=== PATIENT | female | born 1970 | race African-American/Black ===

== ENCOUNTER 2016-09-23 20:14 | Emergency (ER) | payer SELFPAY ==
[~2016-09-23] VITALS: Ht 160 cm; Wt 50.0 kg
[2016-09-23] MEDS ORDERED: SODIUM CHLOR 0.9% 1000 ML INJ 1,000 ML IV SCH (20:44)
[2016-09-23] MEDS ORDERED: SODIUM CHLORIDE 0.9% FLUSH 5 ML FLUSH IVF PRN (20:45)
[2016-09-23] MEDS ORDERED: ONDANSETRON HCL 4 MG/2 ML VIAL IVP ONE (20:45)
[2016-09-23 20:48] VITALS: BP 125/77; PULSE 59; RESP 16; TEMP 98.3; O2SAT 95
--- NOTE | 2016-09-23 21:36 | PD ---
HPI Chief Complaint: GI Complaint Time Seen by Provider: 20:36 Travel History International Travel<30 days: No Contact w/Intl Traveler<30days: No Traveled to known affect area: No History of Present Illness HPI This is a 45-year-old female presents with nausea vomiting and diarrhea since 1800 this afternoon. Patient states that she had a bologna sandwich at approximately 1700 and then started with nausea which is nonbloody and nonbilious as well as diarrhea sometime after that. Patient also states she had a baked potato for lunch but had no problems with that. Denies any abdominal pain fevers or blood in the stool or blood in the emesis. PFSH Past Medical History Medical History: Denies Significant Hx Diminished Hearing: No Tetanus Vaccination: Unknown Influenza Vaccination: No ?: Not LMP: 09/02/16 : 4 Para: 2 : 2 Ovarian Cysts: Yes Past Surgical History Gynecologic Surgery: Yes (GRANULOSA TUMOR REMOVAL) Social History Alcohol Use: Yes (OCCASIONALLY) Tobacco Use: Yes (1 CIGARETTE A DAY) Substance Use: No Allergies-Medications (Allergen,Severity, Reaction): Coded Allergies: No Known Allergies (Unverified , 09/23/16) Reported Meds & Prescriptions Reported Meds & Active Scripts Active Flagyl (Metronidazole) 500 Mg Tab 500 Mg PO BID 7 Days Cipro (Ciprofloxacin HCl) 500 Mg Tab 500 Mg PO BID 7 Days Zofran Odt (Ondansetron Odt) 4 Mg Tab 4 Mg SL Q6HR PRN Review of Systems Except as stated in HPI: all other systems reviewed are Neg Physical Exam Narrative GENERAL: Well-developed well-nourished no apparent distress SKIN: Warm and dry. HEAD: Atraumatic. Normocephalic. EYES: Pupils equal and round. No scleral icterus. No injection or drainage. ENT: No nasal bleeding or discharge. Mucous membranes pink and moist. NECK: Trachea midline. No JVD. CARDIOVASCULAR: Regular rate and rhythm. No murmur appreciated. RESPIRATORY: No accessory muscle use. Clear to auscultation. Breath sounds equal bilaterally. GASTROINTESTINAL: Abdomen soft, non-tender, nondistended. Hepatic and splenic margins not palpable. MUSCULOSKELETAL: No obvious deformities. No clubbing. No cyanosis. No edema. NEUROLOGICAL: Awake and alert. No obvious cranial nerve deficits. Motor grossly within normal limits. Normal speech. PSYCHIATRIC: Appropriate mood and affect; insight and judgment normal. Data Data Last Documented VS Vital Signs Date Time Temp Pulse Resp B/P Pulse Ox O2 Delivery O2 Flow Rate FiO2 09/24/16 00:56 61 18 102/55 98 09/23/16 23:00 Room Air 09/23/16 20:48 98.3 Orders Complete Blood Count With Diff (09/23/16 20:44) Comprehensive Metabolic Panel (09/23/16 20:44) Lipase (09/23/16 20:44) Urinalysis - C+S If Indicated (09/23/16 20:44) Iv Access Insert/Monitor (09/23/16 20:44) Ecg Monitoring (09/23/16 20:44) Oximetry (09/23/16 20:44) Ondansetron Inj (Zofran Inj) (09/23/16 20:45) Sodium Chlor 0.9% 1000 Ml Inj (Ns 1000 M (09/23/16 20:44) Sodium Chloride 0.9% Flush (Ns Flush) (09/23/16 20:45) Ed Urine Pregnancytest Poc (09/23/16 20:44) Ct Abd/Pel W Iv Contrast(Rout) (09/23/16 ) Cath For Specimen (09/23/16 23:06) Urine Culture (09/23/16 22:55) Iohexol 350 Inj (Omnipaque 350 Inj) (09/23/16 23:57) Labs Laboratory Tests Test 09/23/16 09/23/16 21:10 22:55 White Blood Count 19.8 TH/MM3 Red Blood Count 4.69 MIL/MM3 Hemoglobin 13.3 GM/DL Hematocrit 39.7 % Mean Corpuscular Volume 84.6 FL Mean Corpuscular Hemoglobin 28.3 PG Mean Corpuscular Hemoglobin 33.5 % Concent Red Cell Distribution Width 13.3 % Platelet Count 287 TH/MM3 Mean Platelet Volume 10.0 FL Neutrophils (%) (Auto) 90.2 % Lymphocytes (%) (Auto) 4.1 % Monocytes (%) (Auto) 5.2 % Eosinophils (%) (Auto) 0.3 % Basophils (%) (Auto) 0.2 % Neutrophils # (Auto) 17.8 TH/MM3 Lymphocytes # (Auto) 0.8 TH/MM3 Monocytes # (Auto) 1.0 TH/MM3 Eosinophils # (Auto) 0.1 TH/MM3 Basophils # (Auto) 0.0 TH/MM3 CBC Comment DIFF FINAL Differential Comment Sodium Level 140 MEQ/L Potassium Level 3.4 MEQ/L Chloride Level 106 MEQ/L Carbon Dioxide Level 25.9 MEQ/L Anion Gap 8 MEQ/L Blood Urea Nitrogen 13 MG/DL Creatinine 0.77 MG/DL Estimat Glomerular Filtration 99 ML/MIN Rate Random Glucose 124 MG/DL Calcium Level 8.1 MG/DL Total Bilirubin 0.6 MG/DL Aspartate Amino Transf 18 U/L (AST/SGOT) Alanine Aminotransferase 24 U/L (ALT/SGPT) Alkaline Phosphatase 39 U/L Total Protein 6.8 GM/DL Albumin 3.5 GM/DL Lipase 112 U/L Urine Color YELLOW Urine Turbidity HAZY Urine pH 5.0 Urine Specific Dorothy 1.026 Urine Protein 30 mg/dL Urine Glucose (UA) NEG mg/dL Urine Ketones 10 mg/dL Urine Occult Blood NEG Urine Nitrite NEG Urine Bilirubin NEG Urine Urobilinogen 2.0 MG/DL Urine Leukocyte Esterase LARGE Urine RBC 9 /hpf Urine WBC 37 /hpf Urine Squamous Epithelial 12 /hpf Cells Urine Transitional Epithelial <1 /hpf Cells Urine Renal Epithelial Cells <1 /hpf Urine Bacteria RARE /hpf Urine Hyaline Casts 7 /lpf Urine Mucus MANY /lpf Microscopic Urinalysis Comment CULTURE INDICATED MDM Medical Decision Making Medical Screen Exam Complete: Yes Emergency Medical Condition: Yes Differential Diagnosis Gastritis, gastritis, parotitis, cholecystitis, food poisoning. Narrative Course Patient was roomed in the emergency department she did receive 4 mg IV Zofran prior to arrival. She was given a liter of fluid as well as additional 4 mg of IV Zofran by me. Patient appears well in no apparent distress. She does have an elevation of her white blood cell count 19,000. A CT scan was performed and shows: Last 24 hours Impressions Abdomen/Pelvis CT 09/23/16 0000 Signed Impressions: Service Date/Time: Friday, September 23, 2016 23:58 - CONCLUSION: 1. Increased density in the retroperitoneal fat. This is nonspecific. It could potentially be related to processes such as pancreatitis. The cause is not clearly identified. 2. Subcentimeter cyst or hemangioma the right lobe of the liver. Anthony Callaway MD The findings were discussed with the patient and her abdomen is benign currently. We'll cover for gastritis/gastroenteritis as well as urinary tract infection with Cipro and Flagyl. She will be also prescribe Zofran she appears well vital signs are within normal limits abdomen is benign she stable for discharge. Discussed she needs to follow up the CT exam findings with a forest science professor or primary care physician. She is currently trying to establish with one now. Diagnosis Primary Impression: UTI (urinary tract infection) Qualified Code: N30.00 - Acute cystitis without hematuria Additional Impression: Nausea & vomiting Qualified Code: R11.2 - Nausea and vomiting, intractability of vomiting not specified, unspecified vomiting type Med/Other Pt SpecificInfo: Prescription(s) given Scripts Metronidazole (Flagyl)500 Mg [id number] Mg PO BID 7 Days Ref 0 Prov:Tito Mcneal MD 09/24/16 Ciprofloxacin (Cipro)500 Mg [id number] Mg PO BID 7 Days Ref 0 Prov:Tito Mcneal MD 09/24/16 Ondansetron Odt (Zofran Odt)4 Mg Tab4 Mg SL Q6HR PRN (Nausea/Vomiting) #30 TAB Ref 0 Prov:Tito Mcneal MD 09/24/16 Disposition: 01 DISCHARGE HOME Condition: Stable Tito Mcneal MD Sep 23, 2016 21:35
[2016-09-23 21:37] LABS: AUTOMATED NEUTROPHIL # 17.8 TH/MM3 (1.8-7.7); BASOPHIL % 0.2 % (0.0-2.0); EOSINOPHIL # 0.1 TH/MM3 (0-0.4); EOSINOPHIL % 0.3 % (0.0-4.0); HEMATOCRIT 39.7 % (35.0-46.0); HEMO FLAGS DIFF FINAL; LYMPH % 4.1 % (9.0-44.0); LYMPHOCYTE # 0.8 TH/MM3 (1.0-4.8); MEAN CELL VOLUME 84.6 FL (80.0-100.0); MEAN CORPUSCULAR HEMOGLOBIN 28.3 PG (27.0-34.0); MEAN CORPUSCULAR HGB CONC 33.5 % (32.0-36.0); MONO % 5.2 % (0.0-8.0); NEUT % 90.2 % (16.0-70.0); PLATELET COUNT 287 TH/MM3 (150-450); RED BLOOD COUNT 4.69 MIL/MM3 (4.00-5.30); RED CELL DISTRIBUTION WIDTH 13.3 % (11.6-17.2); WHITE BLOOD COUNT 19.8 TH/MM3 (4.0-11.0)
[2016-09-23 21:53] LABS: ALT (GPT) 24 U/L (10-53); ANION GAP 8 MEQ/L (5-15); AST (GOT) 18 U/L (15-37); BICARBONATE 25.9 MEQ/L (21.0-32.0); BLOOD UREA NITROGEN 13 MG/DL (7-18); CHLORIDE 106 MEQ/L (98-107); GLOMERULAR FILTRATION RATE 99 ML/MIN (>89); POTASSIUM 3.4 MEQ/L (3.5-5.1); SODIUM (NA) 140 MEQ/L (136-145)
[2016-09-23 21:56] LABS: ALKALINE PHOSPHATASE 39 U/L (45-117); TOTAL BILIRUBIN ADULT 0.6 MG/DL (0.2-1.0)
[2016-09-23 23:00] VITALS: BP 117/61; PULSE 66; RESP 16; O2SAT 98
[2016-09-23 23:15] LABS: BACTERIA, URINE RARE /hpf; BLOOD, URINE NEG (NEG); COMMENT (UR) CULTURE INDICATED; CULTURE IF INDICATED CULTURE INDICATED; GLUCOSE,URINE NEG (NEG); HYALINE CAST, URINE 7 /lpf (RARE); KETONE, URINE 10 mg/dL (NEG); MUCUS URINE MANY /lpf (OCC); NITRITE,URINE NEG (NEG); RENAL EPITHELIAL CELLS <1 /hpf; SQUAMOUS EPITHELIAL CELL URINE 12 /hpf (0-5); TRANSITIONAL EPI CELLS, URINE <1 /hpf; URINE COLOR YELLOW (YELLW/STRAW)
[2016-09-23] MEDS ORDERED: IOHEXOL 350 MG/ML 10 ML VIAL (for RAD DIAG) IV ONE (23:57)
[2016-09-24] MEDS ORDERED: CEPH-460 PO (00:15)
[2016-09-24] MEDS ORDERED: ZOFR4TAB3 SL (00:15)
--- NOTE | 2016-09-24 00:36 | RADRPT ---
EXAM DATE/TIME: 09/23/2016 23:58 [facility] COMPARISON: No previous studies available for comparison. INDICATIONS : Abdomen pain with nausea and vomiting. IV CONTRAST: 79 cc Omnipaque 350 (iohexol) IV ORAL CONTRAST: No oral contrast ingested. RADIATION DOSE: 5.05 CTDIvol (mGy) MEDICAL HISTORY : None SURGICAL HISTORY : None. ENCOUNTER: Initial ACUITY: 1 day PAIN SCALE: 4/10 LOCATION: abdomen TECHNIQUE: Volumetric scanning of the abdomen and pelvis was performed. Using automated exposure control and ad justment of the mA and/or kV according to patient size, radiation dose was kept as low as reasonably achievable to obtain optimal diagnostic quality images. FINDINGS: LOWER LUNGS: The visualized lower lungs are clear. LIVER: There is a 0.8 cm hyperdensity in the posterior aspect of the right lobe of the liver. SPLEEN: Normal size without lesion. PANCREAS: The pancreas itself appears normal. There is some increased density in the retroperitoneal fat field artillery fire control man ior to the pancreas around the celiac and SMA. KIDNEYS: Normal in size and shape. There is no mass, stone or hydronephrosis. ADRENAL GLANDS: Within normal limits. VASCULAR: There is no aortic aneurysm. BOWEL/MESENTERY: The stomach, small bowel, and colon demonstrate no acute abnormality. There is no free intraperitone al air or fluid. ABDOMINAL WALL: Within normal limits. RETROPERITONEUM: There is no lymphadenopathy. BLADDER: No wall thickening or mass. REPRODUCTIVE: The uterus is retroverted. INGUINAL: There is no lymphadenopathy or hernia. MUSCULOSKELETAL: Within normal limits for patient age. CONCLUSION: 1. Increased density in the retroperitoneal fat. This is nonspecific. It could potentially be related to processes such as pancreatitis. The cause is not clearly identified. 2. Subcentimeter cyst or hemangioma the right lobe of the liver. Anthony Callaway MD on September 24, 2016 at 0:30 Board Certified Radiologist. This report was verified electronically.
[2016-09-24] MEDS ORDERED: METR-1 PO (00:44)
[2016-09-24] MEDS ORDERED: CIPR-9 PO (00:44)
[2016-09-24 00:56] VITALS: BP 102/55
== END 2016-09-24 01:55 | disposition home or self-care (01) ==
LOC: NEPA 20:14
DX: N39.0 Urinary tract infection, site not specified (principal); Z72.0 Tobacco use; B96.89 Other specified bacterial agents as the cause of diseases classified elsewhere
CPT/HCPCS: 74177; 80053; 81001; 83690; 84703; 85025; 87086; 96361; 96374; 99284; J2405; J7030; Q9967

== ENCOUNTER 2017-04-25 12:28 | Emergency (ER) | payer SELFPAY ==
[~2017-04-25] VITALS: Ht 157.5 cm; Wt 51.0 kg
[~2017-04-25 12:28] MED LIST: CIPR-9 PO; METR-1 PO; ZOFR4TAB3 SL
[2017-04-25 12:32] VITALS: BP 136/83; PULSE 62; RESP 12; TEMP 98.4; O2SAT 100
--- NOTE | 2017-04-25 12:35 | PD ---
Physical Exam Time Seen by Provider: 12:33 Narrative 46-year-old female complaining of lower abdominal pain 4 days, with worsening today. Reports nausea without vomiting. Denies fever. Current menses. Denies vaginal odor, discharge. Patient seen in triage. VS reviewed. Patient awaiting bed placement. Data Data Last Documented VS Vital Signs Date Time Temp Pulse Resp B/P (MAP) Pulse Ox O2 Delivery O2 Flow Rate FiO2 04/25/17 12:32 98.4 62 12 136/83 (100) 100 MDM Supervised Visit with KIERAN: Jacey Carpenter Apr 25, 2017 12:34
[2017-04-25] MEDS ORDERED: KETOROLAC TROMETHAMINE 60 MG/2 ML (IM) VIAL IM ONE (13:45)
--- NOTE | 2017-04-25 13:51 | PD ---
HPI . Pelvic pain Chief Complaint: Abdominal Pain Time Seen by Provider: 13:35 Travel History International Travel<30 days: No Contact w/Intl Traveler<30days: No Traveled to known affect area: No History of Present Illness HPI Patient presents with chief complaint of pelvic pain. Onset was 4 days ago with her menses. He describes the pain as crampy, like labor pain. She rates the pain 10/10. There have been no modifying factors. She denies any associated vaginal discharge or dyspareunia. She states that she is lesbian and that there is no way that she could be . She states that she last had sexual intercourse with a man a month ago. She denies any associated fever or urinary tract symptoms. She reports chronic dysmenorrhea. She states that she has been treated in the past for this with naproxen. She has not tried any [id number] Naprosyn. PFSH Past Medical History Diminished Hearing: No : 4 Para: 2 : 2 Ovarian Cysts: Yes Past Surgical History Gynecologic Surgery: Yes (GRANULOSA TUMOR REMOVAL) Social History Alcohol Use: Yes (OCCASIONALLY) Tobacco Use: Yes (1 CIGARETTE A DAY) Substance Use: No Allergies-Medications (Allergen,Severity, Reaction): Coded Allergies: No Known Allergies (Unverified , 09/23/16) Reported Meds & Prescriptions Reported Meds & Active Scripts Active No Active Prescriptions or Reported Medications Review of Systems Except as stated in HPI: all other systems reviewed are Neg General / Constitutional: No: Fever, Chills Genitourinary: Positive: Pelvic Pain, Dysmenorrhea, Vaginal Bleeding, No: Dyspareunia, Discharge, Menorrhagia, Metorrhagia Physical Exam Narrative GENERAL: Awake and alert and in no acute distress. SKIN: warm/dry. No rashes. HEAD: Normocephalic. Atraumatic. EYES: Pupils equal and round. No scleral icterus. No injection or drainage. ENT: No nasal bleeding or discharge. Mucous membranes pink and moist. NECK: Trachea midline. Full range of motion without pain.. CARDIOVASCULAR: Regular rate and rhythm. RESPIRATORY: No accessory muscle use. GASTROINTESTINAL: Abdomen soft. Nontender. Bowel sounds present. Nondistended. PELVIC: Normal female. Scant blood in the vaginal vault compatible with current menses. No cervical motion tenderness. No adnexal tenderness or masses. Uterus is small and nontender. MUSCULOSKELETAL: No obvious deformities. NEUROLOGICAL: Awake and alert. No obvious cranial nerve deficits. Motor grossly within normal limits. Normal speech. PSYCHIATRIC: Appropriate mood and affect; insight and judgment normal. Data Data Last Documented VS Vital Signs Date Time Temp Pulse Resp B/P (MAP) Pulse Ox O2 Delivery O2 Flow Rate FiO2 04/25/17 12:32 98.4 62 12 136/83 (100) 100 Orders Orders Gc And Chlamydia Pcr (04/25/17 12:43) Urinalysis - C+S If Indicated (04/25/17 12:43) Ed Urine Pregnancytest Poc (04/25/17 12:43) Ketorolac Inj (Toradol Inj) (04/25/17 13:45) Wet Prep Profile (04/25/17 14:00) Labs Laboratory Tests Test 04/25/17 14:00 Urine Color YELLOW Urine Turbidity CLEAR Urine pH 6.0 Urine Specific [place] 1.030 Urine Protein TRACE mg/dL Urine Glucose (UA) NEG mg/dL Urine Ketones NEG mg/dL Urine Occult Blood NEG Urine Nitrite NEG Urine Bilirubin NEG Urine Urobilinogen 4.0 MG/DL Urine Leukocyte Esterase NEG Urine RBC 2 /hpf Urine WBC 1 /hpf Urine Squamous Epithelial Cells 1 /hpf Urine Mucus MOD /lpf Microscopic Urinalysis Comment CULT NOT INDICATED Clue Cells (Wet Prep) NONE SEEN Vaginal Trichomonas (Wet Prep) NONE SEEN Vaginal Yeast (Wet Prep) NONE SEEN MDM Medical Decision Making Medical Screen Exam Complete: Yes Emergency Medical Condition: Yes Differential Diagnosis Differential diagnosis of pelvic pain includes but is not limited to UTI, PID, ectopic , spontaneous AB, constipation, viral illness Narrative Course This patient presents with pelvic pain associated with menses. She has a long- standing history of same. She states that she is new to the area and does not have a primary care provider to prescribe her medication. She states that she has been treated in the past with naproxen. Stop tried any [id number] Naprosyn. Pelvic pain workup is in progress. I will give her a shot of Toradol for pain. HCG is negative. UA is negative. Wet prep is negative. The patient will be discharged with a prescription for naproxen Diagnosis Primary Impression: Dysmenorrhea Referrals: [facility] Patient Instructions: Dysmenorrhea (DC), General Instructions Med/Other Pt SpecificInfo: Prescription(s) given Scripts Naproxen (Naprosyn) 500 Mg Tab 500 MG PO BID, #60 TAB 0 Refills Prov: Yamini Rodríguez MD 04/25/17 Disposition: 01 DISCHARGE HOME Condition: Stable Yamini Rodríguez MD Apr 25, 2017 13:51
[2017-04-25 14:22] LABS: BLOOD, URINE NEG (NEG); COMMENT (UR) CULT NOT INDICATED; CULTURE IF INDICATED CULT NOT INDICATED; GLUCOSE,URINE NEG (NEG); KETONE, URINE NEG (NEG); MUCUS URINE MOD /lpf (OCC); NITRITE,URINE NEG (NEG); SQUAMOUS EPITHELIAL CELL URINE 1 /hpf (0-5); URINE COLOR YELLOW (YELLW/STRAW)
[2017-04-25] MEDS ORDERED: NAPR500 PO (14:27)
[2017-04-25 16:43] LABS: CHLAMYDIA PCR NOT DETECTED (NOT DETECT); NEISSERIA PCR NOT DETECTED (NOT DETECT)
== END 2017-04-25 14:43 | disposition home or self-care (01) ==
LOC: NEPD 12:28
DX: N94.6 Dysmenorrhea, unspecified (principal); F17.210 Nicotine dependence, cigarettes, uncomplicated
CPT/HCPCS: 81001; 84703; 87210; 87491; 87591; 96372; 99284; J1885

== ENCOUNTER 2017-09-30 12:08 | Emergency (ER) | payer SELFPAY ==
[~2017-09-30 12:08] MED LIST changes: -CIPR-9 PO; -METR-1 PO; +NAPR500 PO; -ZOFR4TAB3 SL
[2017-09-30 12:33] VITALS: BP 134/86; PULSE 72; RESP 16; TEMP 98; O2SAT 100
[2017-09-30] MEDS ORDERED: AUGM875T3 PO (13:14)
--- NOTE | 2017-09-30 13:20 | PD ---
HPI Chief Complaint: Edema Time Seen by Provider: 13:14 Travel History International Travel<30 days: No Contact w/Intl Traveler<30days: No Traveled to known affect area: No History of Present Illness HPI 46-year-old female presents to the emergency room for evaluation of left-sided facial swelling for the past 4 days. States she has been congested for a little over 1 week. States when she blows her nose she can feel large amounts of green and gold snot leaving her sinuses. She is significant facial and sinus pressure. Pressure is also behind the eyes. She has been taking over-the -counter naproxen and Benadryl with mild relief in symptoms. She denies any fever, chills, nausea, vomiting. She also broke her to 3 days ago and is concerned that may be infected but denies any dental pain. PFSH Past Medical History Diminished Hearing: No ?: Not : 4 Para: 2 : 2 Ovarian Cysts: Yes Past Surgical History Gynecologic Surgery: Yes (GRANULOSA TUMOR REMOVAL) Social History Alcohol Use: Yes (OCCASIONALLY) Tobacco Use: Yes Substance Use: Yes (marijuana) Allergies-Medications (Allergen,Severity, Reaction): Coded Allergies: No Known Allergies (Unverified , 09/23/16) Reported Meds & Prescriptions Reported Meds & Active Scripts Active Naprosyn (Naproxen) 500 Mg Tab 500 Mg PO BID Review of Systems Except as stated in HPI: all other systems reviewed are Neg Physical Exam Narrative GENERAL: Well-nourished, well-developed female no acute distress. Afebrile. Ambulatory. SKIN: Focused skin assessment warm/dry. HEAD: Normocephalic. Tenderness to palpation over the left maxillary sinus. EYES: No scleral icterus. No injection or drainage. ENT: Mucosa pink and moist. No erythema or exudates. No uvular edema. No uvular , palatal, or tonsillar deviation. Airway patent. Nasal turbinates appear normal without nasal blood, purulent drainage or septal hematoma. EARS: Bilateral pinnae and external canals appear within normal limits. Bilateral tympanic membranes without erythema, dullness or perforation. NECK: Supple, trachea midline. No JVD or lymphadenopathy. CARDIOVASCULAR: Regular rate and rhythm without murmurs, gallops, or rubs. RESPIRATORY: Breath sounds equal bilaterally. No accessory muscle use. No crackles, rales, wheezes, or rhonchi. Data Data Last Documented VS Vital Signs Date Time Temp Pulse Resp B/P (MAP) Pulse Ox O2 Delivery O2 Flow Rate FiO2 09/30/17 12:33 98.0 72 16 134/86 (102) 100 MDM Medical Decision Making Medical Screen Exam Complete: Yes Emergency Medical Condition: Yes Medical Record Reviewed: Yes Differential Diagnosis Sinusitis, dental infection, dentalgia, allergies Narrative Course 46-year-old female presents to the emergency room for evaluation of left-sided facial swelling for the past 4 days. She had associated, significant nasal congestion for a little over 1 week. No fevers. On exam, there is a very mild , almost undetectable facial swelling over the left maxillary sinus. It is tender to palpation. Patient likely has bacterial sinusitis. Treated with Augmentin. Told to follow-up with PCP return for worsening symptoms. She understands and agrees to plan. Diagnosis Primary Impression: Acute bacterial sinusitis Referrals: Primary Care Physician Patient Instructions: General Instructions, Sinusitis (ED) Additional Instructions: Augmentin as directed, until gone. Follow-up with primary care physician. Return for worsening symptoms. Med/Other Pt SpecificInfo: Prescription(s) given Scripts Amoxicillin-Clavulanate (Augmentin) 875-125 Mg Tab 1 TAB PO BID for Infection for 7 Days, #14 TAB 0 Refills Prov: Pa Bermudez MD 09/30/17 Disposition: 01 DISCHARGE HOME Condition: Stable Adrienne Durán Sep 30, 2017 13:19
== END 2017-09-30 13:33 | disposition home or self-care (01) ==
LOC: NEPK 12:08
DX: J01.90 Acute sinusitis, unspecified (principal); B96.89 Other specified bacterial agents as the cause of diseases classified elsewhere; Z72.0 Tobacco use; F12.90 Cannabis use, unspecified, uncomplicated
CPT/HCPCS: 99283